=== PATIENT | female | born 1950 | race Caucasian/White ===

== ENCOUNTER → 2017-02-03 | Outpatient (CLI) | payer MEDICARE | END | disposition home or self-care (01) | LOC: LABWHC1 13:29 | PROVIDERS: ATTEND Family Medicine | DX: E04.9 Nontoxic goiter, unspecified (principal); E03.9 Hypothyroidism, unspecified; E78.5 Hyperlipidemia, unspecified | CPT/HCPCS: 36415; 84439; 84443; 84481 ==

== ENCOUNTER → 2017-06-30 | Outpatient (CLI) | payer MEDICARE ==
[2017-06-30 11:44] LABS: ALT 28 U/L (9-52); AST 24 U/L (14-36); Albumin 4.5 g/dL (3.5-5.0); Alkaline Phosphatase 54 U/L (38-126); Anion Gap 11 mmol/L; Blood Urea Nitrogen 12 mg/dL (7-17); Calcium 10.3 mg/dL (8.4-10.2); Carbon Dioxide 28 mmol/L (22-30); Chloride 103 mmol/L (98-107); Cholesterol 204 mg/dL (<200); Glucose 92 mg/dL (74-99); HDL Cholesterol 46 mg/dL (40-60); LDL Cholesterol,Calculated 114 mg/dL (0-99); Sodium 142 mmol/L (137-145); Total Bilirubin 0.8 mg/dL (0.2-1.3); Total Protein 7.5 g/dL (6.3-8.2); Triglycerides 218 mg/dL (<150)
--- NOTE | 2017-06-30 11:47 | XR ---
EXAMINATION TYPE: XR chest 2V DATE OF EXAM: 06/30/2017 COMPARISON: NONE HISTORY: Persistent cough and pneumonia. TECHNIQUE: Frontal and lateral views of the chest are obtained. FINDINGS: Some eventration of right hemidiaphragm is seen. There is no focal air space opacity, pleur al effusion, or pneumothorax seen. The cardiac silhouette size is within normal limits. The osseou s structures are intact. Cholecystectomy clips are noted on lateral view. IMPRESSION: No suspicious acute pulmonary process.
[2017-06-30 16:36] LABS: Hemoglobin A1C 5.8 % (4.0-6.0)
== END | disposition home or self-care (01) ==
LOC: LABWHC1 11:04
PROVIDERS: ATTEND Family Medicine
DX: R05 Cough (principal); E04.1 Nontoxic single thyroid nodule; E11.9 Type 2 diabetes mellitus without complications; E78.5 Hyperlipidemia, unspecified; N19 Unspecified kidney failure
CPT/HCPCS: 36415; 71046; 80053; 80061; 83036; 84443

== ENCOUNTER → 2018-10-14 | Outpatient (CLI) | payer MEDICARE ==
[2018-10-14 20:35] LABS: T4, Free (Free Thyroxine) 1.7 ng/dL (0.80-1.80)
== END | disposition home or self-care (01) ==
LOC: LABWHC1 10:28
PROVIDERS: ATTEND Internal Medicine
DX: Z48.89 Encounter for other specified surgical aftercare (principal); E89.0 Postprocedural hypothyroidism
CPT/HCPCS: 36415; 84439; 84443

== ENCOUNTER → 2020-09-10 | Outpatient (CLI) | payer MEDICARE ==
[2020-09-11 02:42] LABS: African American GFR (CKD) 75.1 (60.0-200.0); Anion Gap 6.8 mmol/L (4.00-12.00); BUN/Creat Ratio 16.67 Ratio (12.00-20.00); Calcium 9.5 mg/dL (8.7-10.3); Carbon Dioxide 28.2 mmol/L (21.6-31.8); Non-African American GFR(CKD) 64.8 (60.0-200.0); Potassium 4.4 mmol/L (3.5-5.5)
== END | disposition home or self-care (01) ==
LOC: LABWHC1 15:10
DX: E87.1 Hypo-osmolality and hyponatremia (principal)
CPT/HCPCS: 36415; 80048

== ENCOUNTER → 2023-03-16 | Outpatient (CLI) | payer MEDICARE ==
--- NOTE | 2023-03-16 15:11 | NM ---
EXAMINATION TYPE: NM bone scan whole body DATE OF EXAM: 03/16/2023 COMPARISON: NONE CLINICAL INDICATION: Female, 72 years old with history of C73 thyroid Ca; Delayed whole-body scanning was performed following the injection of 22.3 mCi Tc 99m MDP. Images acq uired 3 hours post injection. FINDINGS: Focal uptake identified within the lateral right ninth rib. Additional subtle focal uptake identified within the lateral aspect of the mid cervical spine. Some asymmetric uptake identified within the ri ght ischial tuberosity. Focal uptake identified within the right foot and ankle which is favored to b e degenerative. There is increased uptake within the bilateral shoulder and sternoclavicular consistent with degenera tive changes. No other photopenic areas or areas of increased activity are identified. Physiologic radiotracer activity is demonstrated in the kidneys and bladder. IMPRESSION: 1. Focal uptake identified within the lateral right ninth rib. Etiologies include metastasis versus rib fracture. Consider further evaluation with CT chest. 2. Focal uptake identified within the lateral aspect of the cervical spine which could be related to degenerative changes versus metastasis. Consider further evaluation with CT cervical spine. 3. Focal uptake identified within the right ischial tuberosity which again could represent metastasi s. Consider further evaluation with CT pelvis.
== END | disposition home or self-care (01) ==
LOC: RADNMMAIN 10:18
PROVIDERS: ATTEND Internal Medicine
DX: C73 Malignant neoplasm of thyroid gland (principal); M89.8X8 Other specified disorders of bone, other site
CPT/HCPCS: 78306; A9503

== ENCOUNTER → 2023-09-04 | Outpatient (CLI) | payer MEDICARE ==
[2023-09-04 13:27] LABS: African American GFR (CKD) 84 (>60 ml/min/1.73 sqM); Blood Urea Nitrogen 14 mg/dL (7-17); Non-African American GFR(CKD) 73 (>60 ml/min/1.73 sqM)
--- NOTE | 2023-09-04 17:10 | CT ---
EXAMINATION TYPE: CT ChestAbdPelvis w con DATE OF EXAM: 09/04/2023 COMPARISON: None HISTORY: 73-year-old female C79.51, lung and thyroid ca TECHNIQUE: Contiguous axial scanning of the chest, abdomen, and pelvis performed with IV Contrast, pa tient injected with 100 mL of Isovue 300. Delayed images through the kidneys were obtained. Coronal/s agittal reconstructions performed. CT DLP: 1032 mGycm Automated exposure control for dose reduction was used. FINDINGS: CHEST: The heart is normal size without pericardial effusion. Ectatic ascending aorta 3.9 cm. In metatarsal sobriety anatomy. Multiple mediastinal and hilar adenopathy, nodes measuring up to 2.4 cm right paratracheal, 1.9 cm pr ecarinal, 3.0 cm subcarinal, 2.8 cm right hilum, and 2.4 cm left hilum. The thyroid gland itself appears to be surgically absent. There is a [id number] right pleural effusion with innumerable bilateral pulmonary nodules, mos t numerous in the lower lungs measuring up to 2.4 cm. ABDOMEN: No focal liver lesion. No biliary ductal dilatation. Cholecystectomy clips. Portal venous system is p atent. Adrenal glands, kidneys, and pancreas are within normal limits. Punctate calcification in the spleen suggesting prior granulomatous disease. No dilated small bowel, free fluid, or free air. No mesenteric or retroperitoneal adenopathy. Mild to moderate stool burden. No pericolonic inflammatory change. PELVIS: Uterus is anteverted but retroflexed. There is a peripherally enhancing central mass within the left uterine fundus/body measuring 3.2 cm. Small bilateral ovaries. Presacral edema. No pelvic lymphadenop athy. Bones: There is a destructive soft tissue lesion measuring 3.2 cm right posterolateral ninth rib. Possible lytic lesion or Schmorl's node within the inferior L1 endplate region. Enhancing soft tissue lesion posterior elements of the midline lower sacrum. Destructive soft tissue lesion measuring 3.9 cm left pubic body and 2.2 cm left ischial tuberosity. IMPRESSION: 1. MEDIASTINAL AND BILATERAL HILAR ADENOPATHY MEASURING UP TO 3.0 CM ALONG WITH MULTIPLE BILATERAL PU LMONARY NODULES MEASURING UP TO 2.4 CM. FINDINGS COMPATIBLE WITH METASTATIC DISEASE. [id number] E RIGHT PLEURAL EFFUSION. 2. Additional scattered osseous metastatic disease. This involves the right ninth rib, left pubic bod y, left ischial tuberosity, and posterior midline lower sacrum. 3. Possible metastatic focus to the uterus measuring 3.2 cm versus a necrotic fibroid.
== END | disposition home or self-care (01) ==
LOC: RADCTMAIN 12:51
PROVIDERS: ATTEND Radiology Radiation Oncology
DX: C79.51 Secondary malignant neoplasm of bone (principal); C73 Malignant neoplasm of thyroid gland; R91.8 Other nonspecific abnormal finding of lung field; J90 Pleural effusion, not elsewhere classified; R59.0 Localized enlarged lymph nodes
CPT/HCPCS: 82565; 84520; 71260; 74177; 36415; Q9967